=== PATIENT | male | born 1970 | race African-American/Black ===

== ENCOUNTER 2018-11-28 16:48 | Inpatient (IN) | payer OTHER, MEDICAID ==
[~2018-11-28] VITALS: Ht 180.3 cm; Wt 108.9 kg
[2018-11-28] MEDS ORDERED: CLONIDINE 0.2MG TABLET PO ONE (18:45)
[2018-11-28 19:21] LABS: BASOPHILS % 0.5 % (0.0-2.0); EOSINOPHILS % 4.7 % (0.0-5.0); HEMATOCRIT. 48.6 % (42.0-52.0); HEMOGLOBIN. 16.3 g/dL (14.0-18.0); LYMPHOCYTES % 15.3 % (20.0-50.0); MEAN CORPUSCULAR HEMOGLOBIN 31.3 pg (28.0-32.0); MEAN CORPUSCULAR VOLUME 93.2 fL (80.0-94.0); MEAN PLATELET VOLUME 9.5 fl (7.4-10.4); MONOCYTES % 10.2 % (2.0-8.0); NEUTROPHILS % 69.3 % (40.0-76.0); PLATELET 272 x1000/uL (130-400); RED BLOOD CELL COUNT 5.21 mill/uL (4.7-6.1); RED CELL DISTRIBUTION WIDTH 14.2 % (11.6-14.6)
[2018-11-28 19:26] LABS: CHLORIDE 103 mEq/L (98-107)
[2018-11-28 19:29] LABS: INR 1.1; PARTIAL THROMBOPLASTIN TIME 27.9 sec (23.4-31.0); PROTHROMBIN TIME 11.3 sec (9.1-11.1)
[2018-11-28] MEDS ORDERED: CLONIDINE 0.2MG TABLET PO NR (23:21)
[2018-11-28] MEDS ORDERED: AZITHROMYCIN 500 MG in DEXT 5% WATER 250 ML IV ONE (23:30)
[2018-11-28] MEDS ORDERED: CEFTRIAXONE 1 G PREMIX 50 ML IV ONE (23:30)
[2018-11-29] MEDS ORDERED: MORPHINE SULFATE 4 MG/ML CPJ (NOT FOR IM USE) IV PRN (00:45)
[2018-11-29] MEDS ORDERED: GUAIFENESIN 200MG/10ML SUGAR FREE UDC PO PRN (00:45)
[2018-11-29] MEDS ORDERED: CLONIDINE 0.1MG TABLET PO PRN (00:45)
[2018-11-29] MEDS ORDERED: LEVOFLOXACIN 500MG PREMIX 100 ML IV SCH (00:45)
[2018-11-29] MEDS ORDERED: HYDROCODONE/ACETAMINOPHEN 5/325MG TABLET PO PRN (00:45)
[2018-11-29] MEDS ORDERED: DOCUSATE SODIUM 100MG CAPSULE PO PRN (00:45)
[2018-11-29] MEDS ORDERED: ACETAMINOPHEN 325MG TABLET PO PRN (00:45)
[2018-11-29] MEDS ORDERED: ONDANSETRON HCL 4MG/2ML INJ IV PRN (00:45)
[2018-11-29 10:00] VITALS: BP 134/89
[2018-11-29] MEDS ORDERED: COLCHICINE 0.6MG TABLET PO NR (12:30)
[2018-11-29] MEDS: ENOXAPARIN 30MG/0.3ML SYR SUBCUT SCH ×2 (13:27→21:33)
[2018-11-29] MEDS: AMLODIPINE 10MG TABLET PO SCH (13:28)
[2018-11-29] MEDS: LEVOFLOXACIN 750MG PREMIX 150 ML IV SCH (15:23)
[2018-11-29] MEDS: INDOMETHACIN 25MG CAPSULE PO SCH ×2 (15:31→21:34)
[2018-11-29 16:00] VITALS: BP 159/97
[2018-11-29 20:00] VITALS: BP 143/91
[2018-11-29] MEDS: GUAIFENESIN 600MG ER TABLET PO SCH (21:33)
[2018-11-30] VITALS: BP 133/90
[2018-11-30 04:00] VITALS: BP 148/92
[2018-11-30] MEDS: INDOMETHACIN 25MG CAPSULE PO SCH (05:47)
[2018-11-30 07:24] LABS: CHLORIDE 104 mEq/L (98-107)
[2018-11-30 08:00] VITALS: BP 154/105
[2018-11-30 08:12] LABS: BASOPHILS % 0.5 % (0.0-2.0); EOSINOPHILS % 4.6 % (0.0-5.0); HEMATOCRIT. 49.1 % (42.0-52.0); HEMOGLOBIN. 16.5 g/dL (14.0-18.0); LYMPHOCYTES % 20.6 % (20.0-50.0); MEAN CORPUSCULAR HEMOGLOBIN 31.3 pg (28.0-32.0); MEAN CORPUSCULAR VOLUME 93.2 fL (80.0-94.0); MEAN PLATELET VOLUME 9.9 fl (7.4-10.4); MONOCYTES % 10.4 % (2.0-8.0); NEUTROPHILS % 63.9 % (40.0-76.0); PLATELET 275 x1000/uL (130-400); RED BLOOD CELL COUNT 5.27 mill/uL (4.7-6.1); RED CELL DISTRIBUTION WIDTH 14.3 % (11.6-14.6)
[2018-11-30] MEDS: ENOXAPARIN 30MG/0.3ML SYR SUBCUT SCH (09:00)
[2018-11-30] MEDS: GUAIFENESIN 600MG ER TABLET PO SCH (09:25)
[2018-11-30] MEDS: AMLODIPINE 10MG TABLET PO SCH (09:26)
[2018-11-30 10:08] VITALS: BP 154/105
[2018-11-30] MEDS: LEVOFLOXACIN 750MG PREMIX 150 ML IV SCH (10:56)
[2018-11-30 12:00] VITALS: BP 156/104
== END 2018-11-30 15:54 | disposition home or self-care (01) | DRG 139 ==
LOC: ER 18:25 → 7WST 23:53 → EDBEDREQTM 23:56 → EDBEDREQSVC 23:56 → EDBEDREQ 23:56 → SUPCPDRO 11-29 00:32 → ENRESERV 11-29 08:12
PROVIDERS: ADMIT Hospitalist; ATTEND Hospitalist
DX: J18.9 Pneumonia, unspecified organism (principal); I10 Essential (primary) hypertension; M10.9 Gout, unspecified; Z88.0 Allergy status to penicillin
CPT/HCPCS: 36415; 71045; 83605; 83880; 84145; 84484; 84550; 93005; 93970; 96365; 99285; J0456; J0696; J1650; J1956; J7060